=== PATIENT | female | born 1990 | race Caucasian/White ===

== ENCOUNTER 2021-05-14 04:35 | Inpatient (IN) | payer OTHER ==
[~2021-05-14] VITALS: Ht 157.5 cm; Wt 58.1 kg
[2021-05-14 05:55] LABS: HEMOGLOBIN 10.2 gm/dl (12.3-15.3); RED BLOOD COUNT 3.76 M/UL (4.00-5.10); WHITE BLOOD COUNT 11.3 K/UL (4.5-11.0)
[2021-05-14 06:47] LABS: BUN/CREATININE RATIO 10 (0-10)
[2021-05-14] MEDS ORDERED: BUPRENORPHIN-N1 EACH SL (12:01)
[2021-05-14] MEDS ORDERED: FAMOTIDINE20 MG PO (12:02)
[2021-05-14] MEDS ORDERED: PRENATABS FA T1 EACH PO (12:02)
[2021-05-15 03:01] LABS: HEMOGLOBIN 10.5 gm/dl (12.3-15.3)
[2021-05-16] MEDS ORDERED: DOCUSATE SODIU100 MG PO (07:38)
[2021-05-16] MEDS ORDERED: LABETALOL HCL200 MG PO (07:38)
[2021-05-16] MEDS ORDERED: IBUPROFEN600 MG PO (07:38)
[2021-05-16] MEDS ORDERED: HYDROCODON-ACE1 EAC4 PO (07:38)
[2021-05-16 08:26] LABS: HEMOGLOBIN 11.8 gm/dl (12.3-15.3); RED BLOOD COUNT 4.28 M/UL (4.00-5.10); WHITE BLOOD COUNT 10.3 K/UL (4.5-11.0)
[2021-05-16 08:39] LABS: BUN/CREATININE RATIO 13 (0-10)
== END 2021-05-16 16:00 | disposition home or self-care (01) | DRG 787 ==
LOC: GENOP 04:35 → OB 08:41
PROVIDERS: Obstetrics & Gynecology; ADMIT Obstetrics & Gynecology
PROC: 10D00Z1 Extraction of Products of Conception, Low, Open Approach (ICD-10-PCS; principal; 2021-05-14 12:38)
DX: O14.94 Unspecified pre-eclampsia, complicating childbirth (principal); F19.20 Other psychoactive substance dependence, uncomplicated; M06.9 Rheumatoid arthritis, unspecified; O87.0 Superficial thrombophlebitis in the puerperium; M45.9 Ankylosing spondylitis of unspecified sites in spine; O99.324 Drug use complicating childbirth; Z3A.38 38 weeks gestation of pregnancy; Z37.0 Single live birth; O72.1 Other immediate postpartum hemorrhage
CPT/HCPCS: 36415; 80053; 80307; 81001; 82570; 82800; 82962; 83735; 84156; 84550; 85014; 85018; 85025; 86850; 86900; 86901; 90707; 90715; C9113; J0610; J0690; J1100; J2274; J2405; J2590; J2704; J3010; J3475; J7030; J7120; U0002

== ENCOUNTER → 2021-09-03 | Outpatient (CLI) | payer OTHER ==
[~2021-09-03] MED LIST: BUPRENORPHIN-N1 EACH SL; DOCUSATE SODIU100 MG PO; FAMOTIDINE20 MG PO; HYDROCODON-ACE1 EAC4 PO; IBUPROFEN600 MG PO; LABETALOL HCL200 MG PO; PRENATABS FA T1 EACH PO
== END ==
LOC: RAD 15:51
DX: Z87.39 Personal history of other diseases of the musculoskeletal system and connective tissue (principal)
CPT/HCPCS: 72202